=== PATIENT | female | born 1940 | race Caucasian/White ===

== ENCOUNTER 2018-03-06 16:38 | Emergency (ER) | payer MEDICARE ==
[2018-03-06 19:00] LABS: BASO % 0.4 % (0.0-1.0); EOS # 0.3 10^3/uL (0.0-0.50); EOS % 3.1 % (0.0-3.0); HEMATOCRIT 42.9 % (36.0-47.0); IMMATURE GRANULOCYTE % 0.4 % (0-3.0); LYMPH # 1.8 10^3/uL (1.5-4.5); LYMPH % 18.2 % (24.0-44.0); MEAN CORPUSCULAR HEMOGLOBIN 30.1 pg (27.0-33.0); MEAN CORPUSCULAR HGB CONC 32.6 g/dl (32.0-36.5); MEAN CORPUSCULAR VOLUME 92.3 fl (80.0-96.0); MONO % 9.7 % (0.0-5.0); NEUTROPHILS # 6.7 10^3/uL (1.8-7.7); NEUTROPHILS % 68.2 % (36.0-66.0); PLATELET COUNT, AUTOMATED 439 10^3/uL (150-450); RED BLOOD COUNT 4.65 10^6/uL (4.00-5.40); RED CELL DISTRIBUTION WIDTH 13.3 % (11.5-14.5); WHITE BLOOD COUNT 9.8 10^3/uL (4.0-10.0)
[2018-03-06 19:15] LABS: ANION GAP 9 MEQ/L (8-16); BLOOD UREA NITROGEN 11 MG/DL (7-18); C REACTIVE PROTEIN QUANTITATIV 1.84 MG/DL (0.00-0.30); CARBON DIOXIDE LEVEL 25 MEQ/L (21-32); CHLORIDE LEVEL 102 MEQ/L (98-107); GLOMERULAR FILTRATION RATE > 60.0 (>32); GLUCOSE, FASTING 129 MG/DL (70-100); POTASSIUM SERUM 4.3 MEQ/L (3.5-5.1); SODIUM LEVEL 136 MEQ/L (136-145)
[2018-03-06] MEDS: ONDANSETRON 4 MG ORAL DISINTEGRATING TAB (Q0162 PER 1MG) PO (19:16)
[2018-03-06 19:23] LABS: ERYTHROCYTE SEDIMENTATION RATE 25 mm/hr (0-30)
[2018-03-06] MEDS: CLINDAMYCIN 150 MG CAP PO (20:00)
[2018-03-06] MEDS: ACETAMINOPH W/CODEINE #3 TAB UD PO (20:00)
== END 2018-03-06 20:32 | disposition home or self-care (01) ==
LOC: M ED 16:38
DX: L89.629 Pressure ulcer of left heel, unspecified stage (principal); K44.9 Diaphragmatic hernia without obstruction or gangrene; R32 Unspecified urinary incontinence; Z79.899 Other long term (current) drug therapy; Z88.0 Allergy status to penicillin; Z88.1 Allergy status to other antibiotic agents; Z88.2 Allergy status to sulfonamides; Z88.8 Allergy status to other drugs, medicaments and biological substances
CPT/HCPCS: Q0162

== ENCOUNTER 2018-09-16 15:17 | Inpatient (IN) | payer MEDICARE ==
[~2018-09-16] VITALS: Ht 167.6 cm; Wt 69.6 kg
[~2018-09-16 15:17] MED LIST: ACET-716 PO; CALCTAB63 PO; CLEO300C2 PO; METO1TAB32 PO; VITA500C14 PO; VITA80003 PO
[2018-09-16] MEDS ORDERED: MIRT1TAB16 (15:26)
[2018-09-16 19:48] LABS: BASO % 0.4 % (0.0-1.0); EOS # 0.1 10^3/uL (0.0-0.50); EOS % 1.3 % (0.0-3.0); HEMATOCRIT 43.7 % (36.0-47.0); HEMOGLOBIN 14.3 g/dl (12.0-15.5); LYMPH # 1.4 10^3/uL (1.5-4.5); LYMPH % 14.4 % (24.0-44.0); MEAN CORPUSCULAR HEMOGLOBIN 30.5 pg (27.0-33.0); MEAN CORPUSCULAR HGB CONC 32.7 g/dl (32.0-36.5); MEAN CORPUSCULAR VOLUME 93.2 fl (80.0-96.0); MONO % 10.6 % (0.0-5.0); NEUTROPHILS % 72.8 % (36.0-66.0); PLATELET COUNT, AUTOMATED 376 10^3/uL (150-450); RED BLOOD COUNT 4.69 10^6/uL (4.00-5.40); WHITE BLOOD COUNT 9.6 10^3/uL (4.0-10.0)
[2018-09-16 20:10] LABS: BLOOD UREA NITROGEN 15 MG/DL (7-18); CALCIUM LEVEL 9.9 MG/DL (8.8-10.2); CARBON DIOXIDE LEVEL 26 MEQ/L (21-32); CHLORIDE LEVEL 103 MEQ/L (98-107); CREATININE FOR GFR 0.69 MG/DL (0.55-1.30); GLOMERULAR FILTRATION RATE > 60.0 (>32); GLUCOSE, FASTING 158 MG/DL (70-100); POTASSIUM SERUM 4.2 MEQ/L (3.5-5.1); SODIUM LEVEL 139 MEQ/L (136-145)
[2018-09-16] MEDS ORDERED: REME30TA PO (20:48)
[2018-09-16] MEDS ORDERED: VITA-158 PO (20:48)
[2018-09-16] MEDS ORDERED: META0.52 PO (20:48)
[2018-09-16] MEDS ORDERED: A-10CAP2 PO (20:48)
[2018-09-16] MEDS ORDERED: VITA-157 PO (20:48)
[2018-09-16] MEDS ORDERED: CALC600C3 PO (20:48)
[2018-09-16] MEDS ORDERED: MOM 30ML SUSPENSION UDC PO PRN (22:00)
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
[2018-09-16] MEDS ORDERED: LORazepam 0.5 MG TAB PO PRN (22:30)
[2018-09-17 00:57] VITALS: BP 131/71
[2018-09-17] MEDS: ACETAMINOPHEN 500 MG TAB PO SCH ×3 (01:18→20:49)
[2018-09-17] MEDS: DICLOFENAC EPOLAMINE 1.3 % PATCH TOP SCH ×3 (02:10→20:50)
[2018-09-17 06:00] VITALS: BP 131/71
[2018-09-17 07:03] LABS: BASO % 0.3 % (0.0-1.0); EOS # 0.2 10^3/uL (0.0-0.50); EOS % 2.1 % (0.0-3.0); HEMATOCRIT 38.9 % (36.0-47.0); HEMOGLOBIN 12.7 g/dl (12.0-15.5); LYMPH # 1.7 10^3/uL (1.5-4.5); LYMPH % 17.5 % (24.0-44.0); MEAN CORPUSCULAR HEMOGLOBIN 29.4 pg (27.0-33.0); MEAN CORPUSCULAR HGB CONC 32.6 g/dl (32.0-36.5); NEUTROPHILS # 6.5 10^3/uL (1.8-7.7); NEUTROPHILS % 68.7 % (36.0-66.0); PLATELET COUNT, AUTOMATED 359 10^3/uL (150-450); RED BLOOD COUNT 4.32 10^6/uL (4.00-5.40); WHITE BLOOD COUNT 9.5 10^3/uL (4.0-10.0)
[2018-09-17 07:25] LABS: BLOOD UREA NITROGEN 13 MG/DL (7-18); CALCIUM LEVEL 9.4 MG/DL (8.8-10.2); CARBON DIOXIDE LEVEL 26 MEQ/L (21-32); CHLORIDE LEVEL 102 MEQ/L (98-107); CREATININE FOR GFR 0.45 MG/DL (0.55-1.30); GLOMERULAR FILTRATION RATE > 60.0 (>32); GLUCOSE, FASTING 102 MG/DL (70-100); SODIUM LEVEL 135 MEQ/L (136-145)
--- NOTE | 2018-09-17 08:50 | REP ---
Portable chest, 07:23 p.m., single AP view, the patient semi upright: There are no comparisons. The lung hollingsworth are clear. The cardiac size is normal. The quynh, mediastinum, and skeletal structures are unremarkable. Impression: Negative portable chest. Electronically Signed by Miguel Song MD 09/17/2018 08:42 A
[2018-09-17] MEDS: METOPROLOL TART 12.5 MG PER 1/2 TAB PO SCH ×2 (10:03→20:49)
[2018-09-17] MEDS: SENOKOT S TAB PO SCH ×2 (10:03→20:48)
[2018-09-17 14:00] VITALS: BP 131/69
[2018-09-17] MEDS: METAMUCIL (PSYLLIUM) PACKET PO SCH (15:30)
[2018-09-17] MEDS: MIRTAZAPINE 15 MG TAB PO SCH (20:49)
[2018-09-17 22:00] VITALS: BP 133/86
--- NOTE | 2018-09-17 23:22 | IPNPDOC ---
Subjective Date Seen The patient was seen on 09/17/18. Subjective Chief Complaint/HPI Patient appears comfortable, wants to know when she might be discharged. In speaking with her for several minutes, several details of her story (cat recently age 26) seem unlikely. Constitutional: Denies: Chills, Fever Pulmonary: Denies: Dyspnea, Cough Cardiovascular: Denies: Chest Pain Gastrointestinal: Denies: Nausea, Vomiting, Diarrhea, Constipation Objective Physical Examination General Exam: Positive: Alert, Cooperative, No Acute Distress Eye Exam: Positive: PERRLA, Conjunctiva & lids normal, EOMI; Negative: Sclera icteric ENT Exam: Positive: Atraumatic, Mucous membr. moist/pink, Pharynx Normal Neck Exam: Positive: Supple; Negative: JVD, thyromegaly Chest Exam: Positive: Clear to auscultation, Normal air movement Heart Exam: Positive: Rate Normal, Regular Rhythm, Normal S1, Normal S2; Negative: Murmurs, Rubs Abdomen Exam: Positive: Normal bowel sounds, Soft; Negative: Tenderness, Hepatospenomegaly Extremity Exam: Positive: Normal pulses, Tenderness (left knee); Negative: Clubbing, Cyanosis, Edema Skin Exam: Positive: Nl turgor and temperature, Lesion, Other skin issue (right lower leg with old scar); Negative: Breakdown Neuro Exam: Positive: Normal Speech, Normal Tone, Sensation Intact Assessment /Plan Problems (1) Dementia with behavioral problem Problem Text: Requiring placement. (2) Inability to perform activities of daily living Status: Acute Problem Text: Requiring placement. Plan/VTE VTE Prophylaxis Ordered?: Yes VS, I&O, 24H, Fishbone Vital Signs/I&O Vital Signs Date Time Temp Pulse Resp B/P (MAP) Pulse Ox O2 Delivery O2 Flow Rate FiO2 09/17/18 20:49 82 133/86 09/17/18 14:00 97.8 18 94 09/17/18 00:00 Room Air I&O- Last 24 Hours up to 6 AM 09/17/18 06:00 Intake Total 100 ml Balance 100 ml Laboratory Data 24H LABS Laboratory Tests 2 09/17/18 06:30: Immature Granulocyte % (Auto) 0.4, White Blood Count 9.5, Red Blood Count 4.32, Hemoglobin 12.7, Hematocrit 38.9, Mean Corpuscular Volume 90.0, Mean Corpuscular Hemoglobin 29.4, Mean Corpuscular Hemoglobin Concent 32.6, Red Cell Distribution Width 13.4, Platelet Count 359, Neutrophils (%) (Auto) 68.7H, Lymphocytes (%) (Auto) 17.5L, Monocytes (%) (Auto) 11.0H, Eosinophils (%) (Auto) 2.1, Basophils (%) (Auto) 0.3, Neutrophils # (Auto) 6.5, Lymphocytes # (Auto) 1.7, Monocytes # (Auto) 1.0H, Eosinophils # (Auto) 0.2, Basophils # (Auto) 0.0, Nucleated Red Blood Cells % (auto) 0.0, Anion Gap 7L, Glomerular Filtration Rate > 60.0, Blood Urea Nitrogen 13, Creatinine 0.45L, Sodium Level 135L, Potassium Level 4.0, Chloride Level 102, Carbon Dioxide Level 26, Calcium Level 9.4 CBC/BMP Laboratory Tests 09/17/18 06:30 Red Blood Count 4.32, Mean Corpuscular Volume 90.0, Mean Corpuscular Hemoglobin 29.4, Mean Corpuscular Hemoglobin Concent 32.6, Red Cell Distribution Width 13.4, Neutrophils (%) (Auto) 68.7 H, Lymphocytes (%) (Auto) 17.5 L, Monocytes (%) (Auto) 11.0 H, Eosinophils (%) (Auto) 2.1, Basophils (%) (Auto) 0.3, Neutrop hils # (Auto) 6.5, Lymphocytes # (Auto) 1.7, Monocytes # (Auto) 1.0 H, Eosinophils # (Auto) 0.2, Basophils # (Auto) 0.0, Calcium Level 9.4 LU GREGORY DO Sep 17, 2018 23:22
[2018-09-18 06:00] VITALS: BP_SYST 110; BP_SYST 121; BP_DIAS 67
[2018-09-18 08:03] LABS: BASO % 0.7 % (0.0-1.0); EOS # 0.4 10^3/uL (0.0-0.50); EOS % 5.9 % (0.0-3.0); HEMATOCRIT 38.1 % (36.0-47.0); HEMOGLOBIN 12.5 g/dl (12.0-15.5); LYMPH % 33.2 % (24.0-44.0); MEAN CORPUSCULAR HEMOGLOBIN 29.7 pg (27.0-33.0); MEAN CORPUSCULAR HGB CONC 32.8 g/dl (32.0-36.5); MEAN CORPUSCULAR VOLUME 90.5 fl (80.0-96.0); MONO # 0.9 10^3/uL (0.0-0.8); MONO % 14.9 % (0.0-5.0); NEUTROPHILS # 2.8 10^3/uL (1.8-7.7); PLATELET COUNT, AUTOMATED 324 10^3/uL (150-450); RED BLOOD COUNT 4.21 10^6/uL (4.00-5.40); WHITE BLOOD COUNT 6.1 10^3/uL (4.0-10.0)
[2018-09-18 08:24] LABS: BLOOD UREA NITROGEN 17 MG/DL (7-18); CALCIUM LEVEL 9.2 MG/DL (8.8-10.2); CARBON DIOXIDE LEVEL 27 MEQ/L (21-32); CHLORIDE LEVEL 104 MEQ/L (98-107); CREATININE FOR GFR 0.53 MG/DL (0.55-1.30); GLOMERULAR FILTRATION RATE > 60.0 (>32); GLUCOSE, FASTING 82 MG/DL (70-100); POTASSIUM SERUM 4.1 MEQ/L (3.5-5.1); SODIUM LEVEL 138 MEQ/L (136-145)
[2018-09-18] MEDS: METAMUCIL (PSYLLIUM) PACKET PO SCH (09:00)
[2018-09-18] MEDS: SENOKOT S TAB PO SCH ×2 (09:00→21:00)
[2018-09-18] MEDS: METOPROLOL TART 12.5 MG PER 1/2 TAB PO SCH ×2 (09:39→21:13)
[2018-09-18] MEDS: ACETAMINOPHEN 500 MG TAB PO SCH ×2 (09:40→21:12)
[2018-09-18] MEDS: DICLOFENAC EPOLAMINE 1.3 % PATCH TOP SCH ×2 (09:41→21:12)
[2018-09-18 14:00] VITALS: BP 121/78
[2018-09-18] MEDS: MIRTAZAPINE 15 MG TAB PO SCH (21:13)
[2018-09-18 22:00] VITALS: BP 150/87
--- NOTE | 2018-09-19 00:15 | IPNPDOC ---
Subjective Date Seen The patient was seen on 09/18/18. Subjective Chief Complaint/HPI Patient denies complaints, aside from wanting to know when she can leave. Constitutional: Denies: Chills, Fever Pulmonary: Denies: Dyspnea, Cough Cardiovascular: Denies: Chest Pain Gastrointestinal: Denies: Nausea, Vomiting, Diarrhea, Constipation Objective Physical Examination General Exam: Positive: Alert, Cooperative, No Acute Distress Eye Exam: Positive: PERRLA, Conjunctiva & lids normal, EOMI; Negative: Sclera icteric ENT Exam: Positive: Atraumatic, Mucous membr. moist/pink, Pharynx Normal Neck Exam: Positive: Supple; Negative: JVD, thyromegaly Chest Exam: Positive: Clear to auscultation, Normal air movement Heart Exam: Positive: Rate Normal, Regular Rhythm, Normal S1, Normal S2; Negative: Murmurs, Rubs Abdomen Exam: Positive: Normal bowel sounds, Soft; Negative: Tenderness, Hepatospenomegaly Extremity Exam: Positive: Normal pulses, Tenderness (left knee); Negative: Clubbing, Cyanosis, Edema Skin Exam: Positive: Nl turgor and temperature, Lesion, Other skin issue (right lower leg with old scar); Negative: Breakdown Neuro Exam: Positive: Normal Speech, Normal Tone, Sensation Intact Assessment /Plan Problems (1) Dementia with behavioral problem Problem Text: Requiring placement. (2) Inability to perform activities of daily living Status: Acute Problem Text: Requiring placement. Plan/VTE VTE Prophylaxis Ordered?: Yes VS, I&O, 24H, Fishbone Vital Signs/I&O Vital Signs Date Time Temp Pulse Resp B/P (MAP) Pulse Ox O2 Delivery O2 Flow Rate FiO2 09/18/18 22:00 98.5 101 20 150/87 (108) 94 09/17/18 00:00 Room Air I&O- Last 24 Hours up to 6 AM 09/19/18 06:00 Intake Total 1180 ml Output Total 0 ml Balance 1180 ml Laboratory Data 24H LABS Laboratory Tests 2 09/18/18 07:19: Immature Granulocyte % (Auto) 0.3, White Blood Count 6.1, Red Blood Count 4.21, Hemoglobin 12.5, Hematocrit 38.1, Mean Corpuscular Volume 90.5, Mean Corpuscular Hemoglobin 29.7, Mean Corpuscular Hemoglobin Concent 32.8, Red Cell Distribution Width 13.4, Platelet Count 324, Neutrophils (%) (Auto) 45.0, Lymphocytes (%) (Auto) 33.2, Monocytes (%) (Auto) 14.9H, Eosinophils (%) (Auto) 5.9H, Basophils (%) (Auto) 0.7, Neutrophils # (Auto) 2.8, Lymphocytes # (Auto) 2.0, Monocytes # (Auto) 0.9H, Eosinophils # (Auto) 0.4, Basophils # (Auto) 0.0, Nucleated Red Blood Cells % (auto) 0.0, Anion Gap 7L, Glomerular Filtration Rate > 60.0, Blood Urea Nitrogen 17, Creatinine 0.53L, Sodium Level 138, Potassium Level 4.1, Chloride Level 104, Carbon Dioxide Level 27, Calcium Level 9.2 CBC/BMP Laboratory Tests 09/18/18 07:19 Red Blood Count 4.21, Mean Corpuscular Volume 90.5, Mean Corpuscular Hemoglobin 29.7, Mean Corpuscular Hemoglobin Concent 32.8, Red Cell Distribution Width 13.4, Neutrophils (%) (Auto) 45.0, Lymphocytes (%) (Auto) 33.2, Monocytes (%) (Auto) 14.9 H, Eosinophils (%) (Auto) 5.9 H, Basophils (%) (Auto) 0.7, Neutrophils # (Auto) 2.8, Lymphocytes # (Auto) 2.0, Monocytes # (Auto) 0.9 H, Eosinophils # (Auto) 0.4, Basophils # (Auto) 0.0, Calcium Level 9.2 LU GREGORY DO Sep 19, 2018 00:15
[2018-09-19 06:00] VITALS: BP 127/69
[2018-09-19 07:03] LABS: BASO # 0.1 10^3/uL (0.0-0.2); BASO % 0.8 % (0.0-1.0); EOS # 0.4 10^3/uL (0.0-0.50); EOS % 6.3 % (0.0-3.0); HEMOGLOBIN 12.5 g/dl (12.0-15.5); LYMPH # 2.2 10^3/uL (1.5-4.5); LYMPH % 36.3 % (24.0-44.0); MEAN CORPUSCULAR HEMOGLOBIN 30.7 pg (27.0-33.0); MEAN CORPUSCULAR HGB CONC 32.9 g/dl (32.0-36.5); MEAN CORPUSCULAR VOLUME 93.4 fl (80.0-96.0); MONO % 16.1 % (0.0-5.0); NEUTROPHILS # 2.4 10^3/uL (1.8-7.7); NEUTROPHILS % 39.8 % (36.0-66.0); PLATELET COUNT, AUTOMATED 300 10^3/uL (150-450); RED BLOOD COUNT 4.07 10^6/uL (4.00-5.40)
[2018-09-19 07:28] LABS: BLOOD UREA NITROGEN 14 MG/DL (7-18); CALCIUM LEVEL 8.9 MG/DL (8.8-10.2); CARBON DIOXIDE LEVEL 26 MEQ/L (21-32); CHLORIDE LEVEL 106 MEQ/L (98-107); CREATININE FOR GFR 0.54 MG/DL (0.55-1.30); GLOMERULAR FILTRATION RATE > 60.0 (>32); GLUCOSE, FASTING 90 MG/DL (70-100); POTASSIUM SERUM 4.3 MEQ/L (3.5-5.1); SODIUM LEVEL 138 MEQ/L (136-145)
[2018-09-19] MEDS: METOPROLOL TART 12.5 MG PER 1/2 TAB PO SCH ×2 (08:06→20:11)
[2018-09-19] MEDS: SENOKOT S TAB PO SCH ×2 (08:07→20:12)
[2018-09-19] MEDS: DICLOFENAC EPOLAMINE 1.3 % PATCH TOP SCH ×2 (08:07→20:09)
[2018-09-19] MEDS: ACETAMINOPHEN 500 MG TAB PO SCH ×2 (08:07→20:12)
[2018-09-19] MEDS: METAMUCIL (PSYLLIUM) PACKET PO SCH (08:08)
[2018-09-19 13:49] VITALS: BP 128/68
[2018-09-19] MEDS: MIRTAZAPINE 15 MG TAB PO SCH (20:09)
[2018-09-19 22:00] VITALS: BP 115/61
[2018-09-20 06:00] VITALS: BP 124/70
[2018-09-20 06:53] LABS: BASO % 0.5 % (0.0-1.0); EOS # 0.3 10^3/uL (0.0-0.50); EOS % 5.3 % (0.0-3.0); HEMATOCRIT 38.1 % (36.0-47.0); HEMOGLOBIN 12.4 g/dl (12.0-15.5); LYMPH # 2.1 10^3/uL (1.5-4.5); LYMPH % 39.2 % (24.0-44.0); MEAN CORPUSCULAR HEMOGLOBIN 30.2 pg (27.0-33.0); MEAN CORPUSCULAR HGB CONC 32.5 g/dl (32.0-36.5); MEAN CORPUSCULAR VOLUME 92.9 fl (80.0-96.0); MONO # 0.7 10^3/uL (0.0-0.8); MONO % 13.4 % (0.0-5.0); NEUTROPHILS # 2.2 10^3/uL (1.8-7.7); NEUTROPHILS % 41.1 % (36.0-66.0); PLATELET COUNT, AUTOMATED 303 10^3/uL (150-450); WHITE BLOOD COUNT 5.5 10^3/uL (4.0-10.0)
[2018-09-20 07:17] LABS: BLOOD UREA NITROGEN 13 MG/DL (7-18); CALCIUM LEVEL 9.4 MG/DL (8.8-10.2); CARBON DIOXIDE LEVEL 28 MEQ/L (21-32); CHLORIDE LEVEL 106 MEQ/L (98-107); CREATININE FOR GFR 0.47 MG/DL (0.55-1.30); GLOMERULAR FILTRATION RATE > 60.0 (>32); GLUCOSE, FASTING 85 MG/DL (70-100); SODIUM LEVEL 140 MEQ/L (136-145)
[2018-09-20] MEDS: METOPROLOL TART 12.5 MG PER 1/2 TAB PO SCH ×2 (08:29→21:42)
[2018-09-20] MEDS: SENOKOT S TAB PO SCH ×2 (08:30→21:00)
[2018-09-20] MEDS: ACETAMINOPHEN 500 MG TAB PO SCH ×2 (08:30→21:43)
[2018-09-20] MEDS: DICLOFENAC EPOLAMINE 1.3 % PATCH TOP SCH ×2 (08:31→21:43)
[2018-09-20] MEDS: METAMUCIL (PSYLLIUM) PACKET PO SCH (08:42)
[2018-09-20] MEDS: MIRTAZAPINE 15 MG TAB PO SCH (21:42)
[2018-09-21 06:00] VITALS: BP 134/67
[2018-09-21 06:55] LABS: BASO % 0.7 % (0.0-1.0); EOS # 0.3 10^3/uL (0.0-0.50); EOS % 5.2 % (0.0-3.0); HEMATOCRIT 37.2 % (36.0-47.0); LYMPH % 33.9 % (24.0-44.0); MEAN CORPUSCULAR HEMOGLOBIN 29.7 pg (27.0-33.0); MEAN CORPUSCULAR HGB CONC 32.3 g/dl (32.0-36.5); MEAN CORPUSCULAR VOLUME 92.1 fl (80.0-96.0); MONO # 0.9 10^3/uL (0.0-0.8); MONO % 14.3 % (0.0-5.0); NEUTROPHILS # 2.7 10^3/uL (1.8-7.7); NEUTROPHILS % 45.2 % (36.0-66.0); PLATELET COUNT, AUTOMATED 306 10^3/uL (150-450); RED BLOOD COUNT 4.04 10^6/uL (4.00-5.40); WHITE BLOOD COUNT 5.9 10^3/uL (4.0-10.0)
[2018-09-21 07:10] LABS: BLOOD UREA NITROGEN 14 MG/DL (7-18); CALCIUM LEVEL 9.3 MG/DL (8.8-10.2); CARBON DIOXIDE LEVEL 26 MEQ/L (21-32); CHLORIDE LEVEL 106 MEQ/L (98-107); CREATININE FOR GFR 0.54 MG/DL (0.55-1.30); GLOMERULAR FILTRATION RATE > 60.0 (>32); GLUCOSE, FASTING 90 MG/DL (70-100); POTASSIUM SERUM 4.2 MEQ/L (3.5-5.1); SODIUM LEVEL 140 MEQ/L (136-145)
[2018-09-21] MEDS: METOPROLOL TART 12.5 MG PER 1/2 TAB PO SCH ×2 (08:24→19:58)
[2018-09-21] MEDS: ACETAMINOPHEN 500 MG TAB PO SCH ×2 (08:25→19:57)
[2018-09-21] MEDS: METAMUCIL (PSYLLIUM) PACKET PO SCH (08:25)
[2018-09-21] MEDS: DICLOFENAC EPOLAMINE 1.3 % PATCH TOP SCH ×2 (08:25→19:56)
[2018-09-21] MEDS: SENOKOT S TAB PO SCH ×2 (08:25→19:57)
[2018-09-21] MEDS: MIRTAZAPINE 15 MG TAB PO SCH ×2 (19:57→20:01)
[2018-09-22 06:00] VITALS: BP 117/70
[2018-09-22 06:54] LABS: BASO % 0.6 % (0.0-1.0); EOS # 0.3 10^3/uL (0.0-0.50); EOS % 4.7 % (0.0-3.0); HEMATOCRIT 36.2 % (36.0-47.0); HEMOGLOBIN 11.9 g/dl (12.0-15.5); LYMPH # 1.9 10^3/uL (1.5-4.5); LYMPH % 29.9 % (24.0-44.0); MEAN CORPUSCULAR HEMOGLOBIN 29.9 pg (27.0-33.0); MEAN CORPUSCULAR HGB CONC 32.9 g/dl (32.0-36.5); MONO # 0.9 10^3/uL (0.0-0.8); MONO % 13.3 % (0.0-5.0); NEUTROPHILS # 3.3 10^3/uL (1.8-7.7); PLATELET COUNT, AUTOMATED 293 10^3/uL (150-450); RED BLOOD COUNT 3.98 10^6/uL (4.00-5.40); WHITE BLOOD COUNT 6.4 10^3/uL (4.0-10.0)
[2018-09-22 07:20] LABS: BLOOD UREA NITROGEN 18 MG/DL (7-18); CALCIUM LEVEL 8.9 MG/DL (8.8-10.2); CARBON DIOXIDE LEVEL 26 MEQ/L (21-32); CHLORIDE LEVEL 105 MEQ/L (98-107); CREATININE FOR GFR 0.45 MG/DL (0.55-1.30); GLOMERULAR FILTRATION RATE > 60.0 (>32); GLUCOSE, FASTING 91 MG/DL (70-100); SODIUM LEVEL 139 MEQ/L (136-145)
[2018-09-22 09:00] VITALS: BP 128/60
[2018-09-22] MEDS: METAMUCIL (PSYLLIUM) PACKET PO SCH (09:00)
[2018-09-22] MEDS: SENOKOT S TAB PO SCH ×2 (09:00→20:39)
[2018-09-22] MEDS: ACETAMINOPHEN 500 MG TAB PO SCH ×2 (09:42→20:38)
[2018-09-22] MEDS: METOPROLOL TART 12.5 MG PER 1/2 TAB PO SCH ×2 (09:42→20:39)
[2018-09-22] MEDS: DICLOFENAC EPOLAMINE 1.3 % PATCH TOP SCH ×2 (09:43→20:40)
[2018-09-22 13:50] VITALS: BP 130/80
[2018-09-22] MEDS: MIRTAZAPINE 15 MG TAB PO SCH (20:39)
[2018-09-22 22:00] VITALS: BP 116/59
[2018-09-23 06:00] VITALS: BP 127/74
[2018-09-23 06:19] LABS: BASO % 0.7 % (0.0-1.0); EOS # 0.3 10^3/uL (0.0-0.50); EOS % 5.3 % (0.0-3.0); HEMATOCRIT 35.7 % (36.0-47.0); HEMOGLOBIN 11.5 g/dl (12.0-15.5); LYMPH # 1.9 10^3/uL (1.5-4.5); LYMPH % 33.9 % (24.0-44.0); MEAN CORPUSCULAR HEMOGLOBIN 29.6 pg (27.0-33.0); MEAN CORPUSCULAR HGB CONC 32.2 g/dl (32.0-36.5); MEAN CORPUSCULAR VOLUME 91.8 fl (80.0-96.0); MONO % 17.7 % (0.0-5.0); NEUTROPHILS # 2.3 10^3/uL (1.8-7.7); PLATELET COUNT, AUTOMATED 304 10^3/uL (150-450); RED BLOOD COUNT 3.89 10^6/uL (4.00-5.40); WHITE BLOOD COUNT 5.5 10^3/uL (4.0-10.0)
[2018-09-23 06:37] LABS: BLOOD UREA NITROGEN 20 MG/DL (7-18); CALCIUM LEVEL 8.7 MG/DL (8.8-10.2); CARBON DIOXIDE LEVEL 28 MEQ/L (21-32); CHLORIDE LEVEL 107 MEQ/L (98-107); CREATININE FOR GFR 0.47 MG/DL (0.55-1.30); GLOMERULAR FILTRATION RATE > 60.0 (>32); GLUCOSE, FASTING 93 MG/DL (70-100); SODIUM LEVEL 139 MEQ/L (136-145)
[2018-09-23] MEDS: METAMUCIL (PSYLLIUM) PACKET PO SCH (09:00)
[2018-09-23] MEDS: SENOKOT S TAB PO SCH ×2 (09:00→21:20)
[2018-09-23] MEDS: METOPROLOL TART 12.5 MG PER 1/2 TAB PO SCH ×2 (10:26→21:20)
[2018-09-23] MEDS: ACETAMINOPHEN 500 MG TAB PO SCH ×2 (10:27→21:21)
[2018-09-23] MEDS: DICLOFENAC EPOLAMINE 1.3 % PATCH TOP SCH ×2 (10:28→21:21)
[2018-09-23 14:00] VITALS: BP 115/60
[2018-09-23] MEDS: MIRTAZAPINE 15 MG TAB PO SCH (21:20)
[2018-09-24 06:00] VITALS: BP 121/68
[2018-09-24 08:45] VITALS: BP 126/56
[2018-09-24] MEDS: METAMUCIL (PSYLLIUM) PACKET PO SCH (09:00)
[2018-09-24] MEDS: SENOKOT S TAB PO SCH ×2 (09:02→21:00)
[2018-09-24] MEDS: METOPROLOL TART 12.5 MG PER 1/2 TAB PO SCH ×2 (09:02→21:22)
[2018-09-24] MEDS: DICLOFENAC EPOLAMINE 1.3 % PATCH TOP SCH ×2 (09:04→21:21)
[2018-09-24] MEDS: ACETAMINOPHEN 500 MG TAB PO SCH ×2 (09:04→21:22)
[2018-09-24 09:20] VITALS: BP 126/56
[2018-09-24 13:21] VITALS: BP 128/58
[2018-09-24] MEDS: MIRTAZAPINE 15 MG TAB PO SCH (21:22)
[2018-09-25 06:00] VITALS: BP 115/59
[2018-09-25] MEDS: METAMUCIL (PSYLLIUM) PACKET PO SCH (09:00)
[2018-09-25] MEDS: ACETAMINOPHEN 500 MG TAB PO SCH ×2 (09:31→20:01)
[2018-09-25] MEDS: DICLOFENAC EPOLAMINE 1.3 % PATCH TOP SCH ×2 (09:32→20:01)
[2018-09-25] MEDS: METOPROLOL TART 12.5 MG PER 1/2 TAB PO SCH ×2 (09:32→20:01)
[2018-09-25] MEDS: SENOKOT S TAB PO SCH ×2 (09:32→20:01)
[2018-09-25] MEDS: MIRTAZAPINE 15 MG TAB PO SCH (20:01)
[2018-09-26 06:00] VITALS: BP 104/56
[2018-09-26] MEDS: METAMUCIL (PSYLLIUM) PACKET PO SCH (09:00)
[2018-09-26] MEDS: SENOKOT S TAB PO SCH ×2 (09:00→21:00)
[2018-09-26] MEDS: METOPROLOL TART 12.5 MG PER 1/2 TAB PO SCH ×2 (09:48→21:24)
[2018-09-26] MEDS: ACETAMINOPHEN 500 MG TAB PO SCH ×2 (09:49→21:24)
[2018-09-26] MEDS: DICLOFENAC EPOLAMINE 1.3 % PATCH TOP SCH ×2 (09:49→21:25)
[2018-09-26] MEDS: MIRTAZAPINE 15 MG TAB PO SCH (21:23)
[2018-09-27 06:00] VITALS: BP 155/77
[2018-09-27] MEDS: ACETAMINOPHEN 500 MG TAB PO SCH ×2 (08:30→20:36)
[2018-09-27] MEDS: DICLOFENAC EPOLAMINE 1.3 % PATCH TOP SCH ×2 (08:30→20:38)
[2018-09-27] MEDS: METAMUCIL (PSYLLIUM) PACKET PO SCH (08:30)
[2018-09-27] MEDS: METOPROLOL TART 12.5 MG PER 1/2 TAB PO SCH ×2 (08:31→20:37)
[2018-09-27] MEDS: SENOKOT S TAB PO SCH ×2 (08:31→20:38)
[2018-09-27] MEDS: MIRTAZAPINE 15 MG TAB PO SCH (20:38)
[2018-09-28 06:00] VITALS: BP 112/58
--- NOTE | 2018-09-28 07:05 | IPNPDOC ---
Subjective Date Seen The patient was seen on 09/28/18. Subjective Chief Complaint/HPI Patient sitting in bed eating breakfast as I entered the room Constitutional: Denies: Chills, Fever Pulmonary: Denies: Cough Cardiovascular: Denies: Chest Pain Gastrointestinal: Denies: Nausea, Vomiting, Abdominal Pain Psych: Reports: Mood Normal Objective Physical Examination General Exam: Positive: Alert, Cooperative, No Acute Distress Eye Exam: Positive: PERRLA, Conjunctiva & lids normal, EOMI; Negative: Sclera icteric ENT Exam: Positive: Atraumatic, Mucous membr. moist/pink, Pharynx Normal Neck Exam: Positive: Supple; Negative: JVD, thyromegaly Chest Exam: Positive: Clear to auscultation, Normal air movement Heart Exam: Positive: Rate Normal, Regular Rhythm, Normal S1, Normal S2; Negative: Murmurs, Rubs Abdomen Exam: Positive: Normal bowel sounds, Soft; Negative: Tenderness, Hepatospenomegaly Extremity Exam: Positive: Normal pulses, Tenderness (left knee); Negative: Clubbing, Cyanosis, Edema Skin Exam: Positive: Nl turgor and temperature, Lesion, Other skin issue (right lower leg with old scar); Negative: Breakdown Neuro Exam: Positive: Normal Speech, Normal Tone, Sensation Intact Assessment /Plan Problems (1) Dementia with behavioral problem Status: Chronic Problem Text: 09/28/18: Continues to await placement Requiring placement. (2) Inability to perform activities of daily living Status: Acute Problem Text: Requiring placement. Plan/VTE VTE Prophylaxis Ordered?: Yes VS, I&O, 24H, Fishbone Vital Signs/I&O Vital Signs Date Time Temp Pulse Resp B/P (MAP) Pulse Ox O2 Delivery O2 Flow Rate FiO2 09/27/18 08:31 65 155/77 09/27/18 06:00 97.1 18 90 I&O- Last 24 Hours up to 6 AM 09/28/18 06:00 Intake Total 1256 ml Output Total 1200 ml Balance 56 ml LIAM WILLS Sep 28, 2018 07:05
[2018-09-28] MEDS: SENOKOT S TAB PO SCH ×2 (08:25→20:13)
[2018-09-28] MEDS: METOPROLOL TART 12.5 MG PER 1/2 TAB PO SCH ×2 (08:26→20:12)
[2018-09-28] MEDS: ACETAMINOPHEN 500 MG TAB PO SCH ×2 (08:26→20:12)
[2018-09-28] MEDS: METAMUCIL (PSYLLIUM) PACKET PO SCH (08:27)
[2018-09-28] MEDS: DICLOFENAC EPOLAMINE 1.3 % PATCH TOP SCH ×2 (10:10→20:13)
[2018-09-28] MEDS: MIRTAZAPINE 15 MG TAB PO SCH (20:13)
[2018-09-29 05:10] VITALS: BP 114/56
[2018-09-29 06:00] VITALS: BP 114/56
[2018-09-29] MEDS: SENOKOT S TAB PO SCH ×2 (09:00→21:00)
[2018-09-29] MEDS: METAMUCIL (PSYLLIUM) PACKET PO SCH (09:00)
[2018-09-29] MEDS: METOPROLOL TART 12.5 MG PER 1/2 TAB PO SCH ×2 (09:10→21:07)
[2018-09-29] MEDS: ACETAMINOPHEN 500 MG TAB PO SCH ×2 (09:11→21:09)
[2018-09-29] MEDS: DICLOFENAC EPOLAMINE 1.3 % PATCH TOP SCH ×2 (09:11→21:07)
[2018-09-29 20:26] VITALS: BP 153/75
[2018-09-29] MEDS: MIRTAZAPINE 15 MG TAB PO SCH (21:00)
[2018-09-30 05:36] VITALS: BP 158/83
[2018-09-30] MEDS: SENOKOT S TAB PO SCH ×2 (09:00→21:00)
[2018-09-30] MEDS: METAMUCIL (PSYLLIUM) PACKET PO SCH (09:00)
[2018-09-30] MEDS: DICLOFENAC EPOLAMINE 1.3 % PATCH TOP SCH ×2 (09:18→21:52)
[2018-09-30] MEDS: ACETAMINOPHEN 500 MG TAB PO SCH ×2 (09:19→21:52)
[2018-09-30] MEDS: METOPROLOL TART 12.5 MG PER 1/2 TAB PO SCH ×2 (09:23→21:51)
[2018-09-30] MEDS: MIRTAZAPINE 15 MG TAB PO SCH (21:00)
[2018-10-01 06:26] VITALS: BP 130/64
[2018-10-01] MEDS: METAMUCIL (PSYLLIUM) PACKET PO SCH (09:00)
[2018-10-01] MEDS: SENOKOT S TAB PO SCH ×2 (09:00→20:20)
[2018-10-01] MEDS: ACETAMINOPHEN 500 MG TAB PO SCH ×2 (09:18→20:13)
[2018-10-01] MEDS: DICLOFENAC EPOLAMINE 1.3 % PATCH TOP SCH ×2 (09:19→20:13)
[2018-10-01] MEDS: METOPROLOL TART 12.5 MG PER 1/2 TAB PO SCH ×2 (09:19→20:19)
[2018-10-01 14:00] VITALS: BP 127/63
[2018-10-01 20:19] VITALS: BP 150/65
[2018-10-01] MEDS: MIRTAZAPINE 15 MG TAB PO SCH (20:20)
[2018-10-02 05:40] VITALS: BP 148/67
[2018-10-02] MEDS: SENOKOT S TAB PO SCH ×2 (09:00→21:00)
[2018-10-02] MEDS: METAMUCIL (PSYLLIUM) PACKET PO SCH (09:00)
[2018-10-02] MEDS: METOPROLOL TART 12.5 MG PER 1/2 TAB PO SCH ×2 (09:45→20:57)
[2018-10-02] MEDS: DICLOFENAC EPOLAMINE 1.3 % PATCH TOP SCH ×2 (09:46→20:56)
[2018-10-02] MEDS: ACETAMINOPHEN 500 MG TAB PO SCH ×2 (09:46→20:57)
[2018-10-02 14:00] VITALS: BP 115/61
[2018-10-02] MEDS: MIRTAZAPINE 15 MG TAB PO SCH (21:00)
[2018-10-03 06:00] VITALS: BP 119/64
[2018-10-03] MEDS: DICLOFENAC EPOLAMINE 1.3 % PATCH TOP SCH ×2 (08:41→20:01)
[2018-10-03] MEDS: METOPROLOL TART 12.5 MG PER 1/2 TAB PO SCH ×2 (08:42→20:01)
[2018-10-03] MEDS: ACETAMINOPHEN 500 MG TAB PO SCH ×2 (08:42→20:00)
[2018-10-03] MEDS: METAMUCIL (PSYLLIUM) PACKET PO SCH (08:43)
[2018-10-03] MEDS: SENOKOT S TAB PO SCH ×2 (08:44→20:51)
[2018-10-03 20:01] VITALS: BP 143/74
[2018-10-03 20:14] VITALS: BP 132/67
[2018-10-03] MEDS: MIRTAZAPINE 15 MG TAB PO SCH (20:51)
[2018-10-04 05:45] VITALS: BP 127/69
--- NOTE | 2018-10-04 08:16 | IPNPDOC ---
Subjective Date Seen The patient was seen on 10/04/18. Subjective Chief Complaint/HPI Pt this morning without new concerns. She is awaiting placement in a NH and is eager about this change. General: Denies: Fatigue Constitutional: Denies: Chills, Fever ENT: Denies: Head Aches Pulmonary: Denies: Dyspnea, Cough Cardiovascular: Denies: Chest Pain, Palpitations Gastrointestinal: Denies: Nausea, Vomiting, Diarrhea Neurological: Reports: Weakness Objective Physical Examination General Exam: Positive: Alert, Cooperative, No Acute Distress ENT Exam: Positive: Mucous membr. moist/pink Neck Exam: Positive: Supple; Negative: JVD Chest Exam: Positive: Clear to auscultation, Normal air movement Heart Exam: Positive: Rate Normal, Regular Rhythm, Normal S1, Normal S2; Negative: Murmurs, Rubs Abdomen Exam: Positive: Normal bowel sounds, Soft; Negative: Tenderness Extremity Exam: Negative: Edema Skin Exam: Positive: Nl turgor and temperature Neuro Exam: Positive: Normal Speech, Normal Tone, Sensation Intact Psych Exam: Positive: Mood NL Assessment /Plan Problems (1) Dementia with behavioral problem Status: Chronic Problem Text: 10/04 await placement, PFS working with pt and family. 09/28/18: Continues to await placement Requiring placement. (2) Inability to perform activities of daily living Status: Chronic Problem Text: Requiring placement. Plan/VTE VTE Prophylaxis Ordered?: Yes VS, I&O, 24H, Fishbone Vital Signs/I&O Vital Signs Date Time Temp Pulse Resp B/P (MAP) Pulse Ox O2 Delivery O2 Flow Rate FiO2 10/04/18 05:46 69 95 10/04/18 05:45 97.4 18 127/69 (88) I&O- Last 24 Hours up to 6 AM 10/04/18 05:59 Intake Total 1140 ml Output Total 1475 ml Balance -335 ml RAVI JURADO PA-C Oct 04, 2018 08:16
[2018-10-04] MEDS: SENOKOT S TAB PO SCH ×2 (09:00→21:00)
[2018-10-04] MEDS: METAMUCIL (PSYLLIUM) PACKET PO SCH (09:00)
[2018-10-04] MEDS: METOPROLOL TART 12.5 MG PER 1/2 TAB PO SCH ×2 (09:53→21:54)
[2018-10-04] MEDS: ACETAMINOPHEN 500 MG TAB PO SCH ×2 (09:54→21:51)
[2018-10-04] MEDS: DICLOFENAC EPOLAMINE 1.3 % PATCH TOP SCH ×2 (09:54→21:55)
[2018-10-04] MEDS: MIRTAZAPINE 15 MG TAB PO SCH (21:00)
[2018-10-05 06:00] VITALS: BP 123/71
[2018-10-05] MEDS: SENOKOT S TAB PO SCH ×2 (09:00→21:00)
[2018-10-05] MEDS: METAMUCIL (PSYLLIUM) PACKET PO SCH (09:00)
[2018-10-05] MEDS: METOPROLOL TART 12.5 MG PER 1/2 TAB PO SCH ×2 (09:32→21:27)
[2018-10-05] MEDS: ACETAMINOPHEN 500 MG TAB PO SCH ×2 (09:34→21:26)
[2018-10-05] MEDS: DICLOFENAC EPOLAMINE 1.3 % PATCH TOP SCH ×2 (09:34→21:27)
[2018-10-05] MEDS: MIRTAZAPINE 15 MG TAB PO SCH (21:00)
[2018-10-06 06:00] VITALS: BP 129/68
[2018-10-06] MEDS: SENOKOT S TAB PO SCH ×2 (08:26→21:00)
[2018-10-06] MEDS: METAMUCIL (PSYLLIUM) PACKET PO SCH (08:26)
[2018-10-06] MEDS: METOPROLOL TART 12.5 MG PER 1/2 TAB PO SCH ×2 (08:46→21:44)
[2018-10-06] MEDS: ACETAMINOPHEN 500 MG TAB PO SCH ×2 (08:47→21:43)
[2018-10-06] MEDS: DICLOFENAC EPOLAMINE 1.3 % PATCH TOP SCH ×2 (08:47→21:43)
[2018-10-06 19:40] VITALS: BP 127/62
[2018-10-06] MEDS: MIRTAZAPINE 15 MG TAB PO SCH (21:00)
[2018-10-07 05:11] VITALS: BP 122/54
[2018-10-07] MEDS: SENOKOT S TAB PO SCH ×2 (09:00→21:00)
[2018-10-07] MEDS: METAMUCIL (PSYLLIUM) PACKET PO SCH (09:00)
[2018-10-07] MEDS: METOPROLOL TART 12.5 MG PER 1/2 TAB PO SCH ×2 (09:32→22:19)
[2018-10-07] MEDS: ACETAMINOPHEN 500 MG TAB PO SCH ×2 (09:32→22:18)
[2018-10-07] MEDS: DICLOFENAC EPOLAMINE 1.3 % PATCH TOP SCH ×2 (09:32→22:19)
[2018-10-07] MEDS: MIRTAZAPINE 15 MG TAB PO SCH (21:00)
[2018-10-08 06:00] VITALS: BP 124/72
[2018-10-08] MEDS: ACETAMINOPHEN 500 MG TAB PO SCH ×2 (08:52→20:11)
[2018-10-08] MEDS: SENOKOT S TAB PO SCH ×2 (08:53→20:12)
[2018-10-08] MEDS: METOPROLOL TART 12.5 MG PER 1/2 TAB PO SCH ×2 (08:53→20:12)
[2018-10-08] MEDS: DICLOFENAC EPOLAMINE 1.3 % PATCH TOP SCH ×2 (08:53→20:10)
[2018-10-08] MEDS: METAMUCIL (PSYLLIUM) PACKET PO SCH (08:53)
[2018-10-08 14:00] VITALS: BP 122/66
[2018-10-08] MEDS: MIRTAZAPINE 15 MG TAB PO SCH (20:12)
[2018-10-09 05:41] VITALS: BP 138/74
[2018-10-09 06:00] VITALS: BP 138/74
[2018-10-09] MEDS: METOPROLOL TART 12.5 MG PER 1/2 TAB PO SCH ×2 (08:55→20:42)
[2018-10-09] MEDS: ACETAMINOPHEN 500 MG TAB PO SCH ×2 (08:55→20:43)
[2018-10-09] MEDS: DICLOFENAC EPOLAMINE 1.3 % PATCH TOP SCH ×2 (08:56→20:43)
[2018-10-09] MEDS: METAMUCIL (PSYLLIUM) PACKET PO SCH (08:56)
[2018-10-09] MEDS: SENOKOT S TAB PO SCH ×2 (08:56→20:46)
[2018-10-09 20:10] VITALS: BP 142/46
[2018-10-09] MEDS: MIRTAZAPINE 15 MG TAB PO SCH (20:46)
[2018-10-10 05:06] VITALS: BP 134/52
[2018-10-10] MEDS: SENOKOT S TAB PO SCH ×2 (09:00→20:33)
[2018-10-10] MEDS: METAMUCIL (PSYLLIUM) PACKET PO SCH (09:00)
[2018-10-10] MEDS: METOPROLOL TART 12.5 MG PER 1/2 TAB PO SCH ×2 (09:31→20:26)
[2018-10-10] MEDS: ACETAMINOPHEN 500 MG TAB PO SCH ×2 (09:32→20:26)
[2018-10-10] MEDS: DICLOFENAC EPOLAMINE 1.3 % PATCH TOP SCH ×4 (09:32→20:29)
--- NOTE | 2018-10-10 10:14 | IPNPDOC ---
Subjective Date Seen The patient was seen on 10/10/18. Subjective Chief Complaint/HPI dementia Events since last encounter Had diclofenac patch applied to left knee. Requesting one for right knee. Otherwise, feels well. Waiting for SNF bed. Pulmonary: Denies: Dyspnea, Cough Cardiovascular: Denies: Chest Pain, Palpitations, Orthopnea, Paroxysmal Noc. Dyspnea, Lt Headedness Gastrointestinal: Denies: Nausea, Vomiting, Abdominal Pain, Diarrhea, Constipation Genitourinary: Reports: Incontinence; Denies: Dysuria, Frequency, Retention Musculoskeletal: Reports: Other Symptoms (knee pain bilateral) Objective Physical Examination General Exam: Positive: Alert, Cooperative, No Acute Distress ENT Exam: Positive: Mucous membr. moist/pink Neck Exam: Positive: Supple; Negative: JVD Chest Exam: Positive: Clear to auscultation, Normal air movement Heart Exam: Positive: Rate Normal, Regular Rhythm, Normal S1, Normal S2; Negative: Murmurs, Rubs Abdomen Exam: Positive: Normal bowel sounds, Soft; Negative: Tenderness Extremity Exam: Negative: Edema Skin Exam: Positive: Nl turgor and temperature Neuro Exam: Positive: Normal Speech, Normal Tone, Sensation Intact Psych Exam: Positive: Mood NL Assessment /Plan Problems (1) Dementia with behavioral problem Status: Chronic Problem Text: 10/10/18: continue to await placement. PFS involved. 10/04 await placement, PFS working with pt and family. 09/28/18: Continues to await placement Requiring placement. (2) Inability to perform activities of daily living Status: Chronic Problem Text: Requiring placement. (3) Knee pain, bilateral Problem Text: diclofenac patch applied bilateral Plan/VTE VTE Prophylaxis Ordered?: Yes VS, I&O, 24H, Fishbone Vital Signs/I&O Vital Signs Date Time Temp Pulse Resp B/P (MAP) Pulse Ox O2 Delivery O2 Flow Rate FiO2 10/10/18 09:31 84 142/46 10/09/18 06:00 97.1 18 93 I&O- Last 24 Hours up to 6 AM 10/10/18 06:00 Intake Total 2340 ml Output Total 2825 ml Balance -485 ml eKlly Moreno RIDE MECHANIC Oct 10, 2018 10:14
[2018-10-10 10:30] VITALS: BP 135/55
[2018-10-10 10:34] VITALS: BP 135/55
[2018-10-10 20:22] VITALS: BP 141/60
[2018-10-10] MEDS: MIRTAZAPINE 15 MG TAB PO SCH (20:33)
[2018-10-11 06:16] VITALS: BP 155/82
[2018-10-11] MEDS: METOPROLOL TART 12.5 MG PER 1/2 TAB PO SCH ×2 (08:47→21:16)
[2018-10-11] MEDS: ACETAMINOPHEN 500 MG TAB PO SCH ×2 (08:47→21:16)
[2018-10-11] MEDS: METAMUCIL (PSYLLIUM) PACKET PO SCH (08:48)
[2018-10-11] MEDS: SENOKOT S TAB PO SCH ×3 (08:48→21:15)
[2018-10-11] MEDS: DICLOFENAC EPOLAMINE 1.3 % PATCH TOP SCH ×4 (08:49→21:17)
[2018-10-11] MEDS: MIRTAZAPINE 15 MG TAB PO SCH (21:15)
[2018-10-12 06:00] VITALS: BP 123/54
[2018-10-12] MEDS: ACETAMINOPHEN 500 MG TAB PO SCH (08:42)
[2018-10-12 08:43] VITALS: BP 123/54
[2018-10-12] MEDS: METAMUCIL (PSYLLIUM) PACKET PO SCH (08:43)
[2018-10-12] MEDS: SENOKOT S TAB PO SCH (08:43)
[2018-10-12] MEDS: METOPROLOL TART 12.5 MG PER 1/2 TAB PO SCH (08:43)
[2018-10-12] MEDS: DICLOFENAC EPOLAMINE 1.3 % PATCH TOP SCH ×2 (08:43→08:44)
[2018-10-12] MEDS ORDERED: METO1TAB87 PO (08:46)
[2018-10-12] MEDS ORDERED: DICL13PA TOP (08:46)
[2018-10-12] MEDS ORDERED: SENN-52 PO (08:46)
[2018-10-12] MEDS ORDERED: ACET-683 PO (08:46)
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
== END 2018-10-12 11:50 | DRG 884 ==
LOC: M ED 15:17 → M ED INP 21:53 → M MS5PR 09-17 00:41
PROVIDERS: ADMIT Internal Medicine Nephrology; ATTEND Family Medicine
DX: F03.91 Unspecified dementia, unspecified severity, with behavioral disturbance (principal); M17.0 Bilateral primary osteoarthritis of knee; I10 Essential (primary) hypertension; K59.00 Constipation, unspecified; Z79.899 Other long term (current) drug therapy; Z88.0 Allergy status to penicillin; Z88.2 Allergy status to sulfonamides; Z88.6 Allergy status to analgesic agent; Z91.018 Allergy to other foods; Z74.01 Bed confinement status; Z74.2 Need for assistance at home and no other household member able to render care